=== PATIENT | male | born 1965 | race Caucasian/White ===

== ENCOUNTER 2018-01-26 11:36 | Emergency (ER) | payer OTHER, BC ==
--- NOTE | 2018-01-26 12:00 | EDM.PDOC ---
ED HPI GENERAL MEDICAL PROBLEM - General Chief Complaint: Back Pain or Injury Stated Complaint: [id number] MESSED UP BACK WORKERS COMP Time Seen by Provider: 01/26/18 11:50 Source of Information: Reports: Patient History Limitations: Reports: No Limitations - History of Present Illness INITIAL COMMENTS - FREE TEXT/NARRATIVE: This 52 yo male patient reports to the ED with left lower back pain. The patient reports he was moving a table with parts on it when the pain started. The patient reports he was twisting at the same time. Since the initial injury, the patient has had increased pain with walking (up to 10 steps before his back cramps up). The patient was working with the [employer] at the time of the injury. Onset: Today Onset Date: 01/26/18 Onset Time: 11:00 Duration: Constant Location: Reports: Back (left lower back radiating to the left buttocks) Quality: Reports: Ache, Sharp Severity: Moderate Improves with: Reports: Rest Worsens with: Reports: Movement Associated Symptoms: Reports: No Other Symptoms Bilateral Lower Back Pain Score (Numeric/FACES): 6 - Related Data Allergies Allergy/AdvReac Type Severity Reaction Status Date / Time No Known Allergies Allergy Verified 01/26/18 11:45 Home Meds: Home Meds Pantoprazole [ProTONIX] 40 mg PO DAILY 01/26/18 [History] Past Medical History Respiratory History: Reports: Pneumonia, Recurrent Gastrointestinal History: Reports: GERD, Hiatal Hernia Social & Family History - Tobacco Use Smoking Status *Q: Never Smoker Second Hand Smoke Exposure: No - Recreational Drug Use Recreational Drug Use: No ED ROS GENERAL - Review of Systems Review Of Systems: ROS reveals no pertinent complaints other than HPI. ED EXAM,LOWER BACK PAIN/INJURY - Physical Exam Exam: See Below Exam Limited By: No Limitations General Appearance: Alert, WD/WN, Moderate Distress Eye Exam: Bilateral Eye: EOMI, Normal Inspection, PERRL Ears: Normal External Exam, Normal Canal, Hearing Grossly Normal, Normal TMs Nose: Normal Inspection, Normal Mucosa, No Blood Throat/Mouth: Normal Inspection, Normal Lips, Normal Teeth, Normal Gums, Normal Oropharynx, Normal Voice, No Airway Compromise Head: Atraumatic, Normocephalic Neck: Normal Inspection, Supple, Non-Tender, Full Range of Motion Respiratory/Chest: No Respiratory Distress, Lungs Clear, Normal Breath Sounds, No Accessory Muscle Use, Chest Non-Tender Cardiovascular: Normal Peripheral Pulses, Regular Rate, Rhythm, No Edema, No Gallop, No JVD, No Murmur, No Rub GI/Abdominal: Normal Bowel Sounds, Soft, Non-Tender, No Organomegaly, No Distention, No Abnormal Bruit, No Mass (Male) Exam: Deferred Rectal (Males) Exam: Deferred Back Exam: Decreased Range of Motion (due to muscle spasm and pain), Muscle Spasm, Paraspinal Tenderness (left lower back) Extremities: Normal Inspection, Normal Range of Motion, Non-Tender, No Pedal Edema, Normal Capillary Refill Neurological: Alert, Normal Mood/Affect Psychiatric: Normal Affect, Normal Mood Skin Exam: Warm, Dry, Intact, Normal Color, No Rash Lymphatic: No Adenopathy Course - Vital Signs Last Recorded V/S: Last Vital Signs Temp 37.1 C 01/26/18 11:42 Pulse 73 01/26/18 11:42 Resp 18 01/26/18 11:42 BP 166/87 H 01/26/18 11:42 Pulse Ox 100 01/26/18 11:42 - Orders/Labs/Meds Meds: Medications Discontinued Medications Generic Name Dose Route Start Last Admin Trade Name Freq PRN Reason Stop Dose Admin Ketorolac Tromethamine 30 mg 01/26/18 12:53 01/26/18 12:58 Toradol IM 01/26/18 12:54 30 mg ONETIME ONE Administration Departure - Departure Time of Disposition: 13:03 Disposition: Home, Self-Care 01 Condition: Fair Clinical Impression: Low back strain Qualifiers: Encounter type: initial encounter Qualified Code(s): S39.012A - Strain of muscle, fascia and tendon of lower back, initial encounter Low back pain with left-sided sciatica Qualifiers: Chronicity: acute Back pain laterality: left Qualified Code(s): M54.42 - Lumbago with sciatica, left side - Discharge Information *PRESCRIPTION DRUG MONITORING PROGRAM REVIEWED*: Not Applicable *COPY OF PRESCRIPTION DRUG MONITORING REPORT IN PATIENT LUI: Not Applicable Instructions: Muscle Strain, [id number], Sciatica, [id number], Back Exercises, [id number], Low Back Strain Forms: ED Department Discharge Care Plan Goals: The patient was advised of the examination and x-ray results during the visit. The patient was given an injection of Toradol (antiinflammatory) while in the ED. The patient was discharged with a script for Toradol (10 mg) #20 to take 1 by mouth every 6 hours and Flexeril (10 mg) #16 to take 1 by mouth at bedtime as needed. If the patient has any additional symptoms or concerns, the patient should follow-up with his primary care facility or return to the emergency department.
--- NOTE | 2018-01-26 12:17 | CR ---
Clinical history: 52-year-old male "twisted" injuring lower back, on the left. Interpretation: Subtle scoliotic curvature with convexity to the left and chronic arthritic changes i .e. hypertrophic marginal spondylosis involving all levels lower thoracic and entire lumbar spine. Note: Subtle relative intervertebral disc space narrowing L2-3, L3-4 and L4-5 level suggests chronic disc disease. No sign of pathologic skeletal lesion, lumbar fracture or spondylolisthesis. Symmetric spacing normal-appearing SI joints. CONCLUSION: Subtle changes suggesting multilevel disc disease. Mild arthritic spondylosis. No fractur e or dislocation.
[2018-01-26] MEDS ORDERED: Ketorolac 30 MG/ML SDV IM ONE (12:53)
== END 2018-01-26 13:19 | disposition home or self-care (01) ==
LOC: DL.ED 11:36
DX: S39.012A Strain of muscle, fascia and tendon of lower back, initial encounter (principal); M54.42 Lumbago with sciatica, left side; X50.1XXA Overexertion from prolonged static or awkward postures, initial encounter
CPT/HCPCS: 72100; 96372; 99283; J1885

== ENCOUNTER 2020-04-23 05:23 | Day surgery (SDC) | payer BC ==
[2020-04-23] MEDS ORDERED: Midazolam 1 MG/ML 2 ML SDV IV ONE (05:24)
[2020-04-23] MEDS ORDERED: fentaNYL 100 MCG/2 ML SDV IV ONE (05:24)
[2020-04-23] MEDS ORDERED: Sodium Chloride 0.9% 10 ML Syringe FLUSH PRN (05:30)
[2020-04-23] MEDS: Dextrose 5%-0.45% NaCl 1,000 ML IV SCH (06:00)
[2020-04-23] MEDS ORDERED: fentaNYL 100 MCG/2 ML SDV ONE (06:13)
[2020-04-23] MEDS ORDERED: Midazolam 1 MG/ML 2 ML SDV ONE (06:13)
[2020-04-23] MEDS: fentaNYL 100 MCG/2 ML SDV IV ONE ×2 (06:27→06:28)
[2020-04-23] MEDS: Midazolam 1 MG/ML 2 ML SDV IV ONE ×2 (06:28→06:29)
--- NOTE | 2020-04-23 07:08 | OR ---
DATE: 04/23/2020 PROCEDURES: Esophagogastroduodenoscopy and multiple pinch biopsies. INSTRUMENT USED: [id number] Olympus video panendoscope. PREMEDICATIONS: No oral or topical anesthesia used. Fentanyl 100 mcg intravenous, Versed 2 mg intravenous. The procedure was done under pulse oximetry, BP recording, and engine monitor. INDICATION: The patient with persistent upper abdominal pain and related chest symptoms unexplained and not responsive to medical measures, on long-term PPI. Esophagogastroduodenoscopy is performed for detection of any active erosive lesions, Lynch esophagus and/or malignancy also under consideration, H pylori status to be determined, biopsies to be obtained for esophageal eosinophilia if indicated, esophageal dilatations if indicated, endoscopic hemostasis therapy if needed. DESCRIPTION OF PROCEDURE: The scope was passed with ease. Adequate visualization of the esophagus was made from proximal to distal areas. No upper esophageal lesions identified. No distal esophageal stricture. No uphill or downhill esophageal varices. No Blanca-Valdez tear. No evidence of erosive esophagitis by Charleroi criteria. No esophageal polyp or tumor mass identified. Non-constricting Schatzki's ring was noted. Z-line was seen at around 40 cm distal to the oral verge. No proximal gastric varices noted. Gastric fundus examination by retroflexion showed numerous diminutive benign- appearing polyps. No gastric ulcer, malignant mass, or vascular ectasia identified. Duodenal bulb showed no ulcer. Visualized second part of the duodenum was unremarkable. Multiple pinch biopsies were taken from the gastric antrum and proximal body and sent for PyloriTek test for H. pylori and histopathology. 4 quadrant biopsies were taken from the distal and proximal esophagus and sent for any evidence of esophageal eosinophilia. No bleeding was noted from any of the visualized areas at the completion of examination. Photographs were taken of the duodenal bulb, gastric antrum, fundus, and distal esophagus. IMPRESSION: Diminutive gastric fundus polyps. The patient tolerated the procedure well. [facility] /[id number]
== END 2020-04-23 08:49 | disposition home or self-care (01) ==
LOC: DL.ENDO 05:23
PROVIDERS: ATTEND Internal Medicine Gastroenterology
DX: K31.89 Other diseases of stomach and duodenum (principal); I78.1 Nevus, non-neoplastic; K31.7 Polyp of stomach and duodenum; K21.9 Gastro-esophageal reflux disease without esophagitis; H93.19 Tinnitus, unspecified ear; Z80.0 Family history of malignant neoplasm of digestive organs; Z82.49 Family history of ischemic heart disease and other diseases of the circulatory system
CPT/HCPCS: 43239; 87077; J2250; J3010; J7042

== ENCOUNTER 2021-08-20 18:28 | Emergency (ER) | payer BC ==
[2021-08-20 19:22] LABS: CORONAVIRUS COVID-19 NAA NEGATIVE (NEGATIVE); RESPIRATORY SYNCYTIAL VIR NAA NEGATIVE (NEGATIVE)
[2021-08-20] MEDS ORDERED: Sodium Chloride 0.9% 10 ML Syringe FLUSH PRN (19:59)
[2021-08-20] MEDS ORDERED: Acetaminophen 500 MG Tab PO ONE (19:59)
[2021-08-20] MEDS ORDERED: Ketorolac 30 MG/ML SDV IVPUSH ONE (19:59)
[2021-08-20] MEDS ORDERED: Sodium Chloride 0.9% 1,000 ML IV SCH (20:00)
[2021-08-20] MEDS ORDERED: Ondansetron 4 MG/2 ML SDV IVPUSH ONE (20:27)
[2021-08-20 20:45] LABS: ANION GAP 17.8 mEq/L (7-13); CHLORIDE,CL 99 mmol/L (98-107); SODIUM,NA 136 mmol/L (136-145)
== END 2021-08-21 00:17 | disposition home or self-care (01) ==
LOC: DL.ED 18:28
DX: J02.9 Acute pharyngitis, unspecified (principal); B34.9 Viral infection, unspecified; K21.9 Gastro-esophageal reflux disease without esophagitis; Z88.3 Allergy status to other anti-infective agents; Z79.899 Other long term (current) drug therapy; Z20.822 Contact with and (suspected) exposure to COVID-19
CPT/HCPCS: 0241U; 36415; 71046; 80053; 81001; 83605; 85025; 86140; 87040; 87081; 87430; 96374; 96375; 99283; J1885; J2405; J3490; J7030

== ENCOUNTER 2022-10-06 09:29 | Emergency (ER) | payer BC ==
[2022-10-06] MEDS ORDERED: Ketorolac 30 MG/ML SDV IM ONE (09:40)
== END 2022-10-06 10:38 | disposition home or self-care (01) ==
LOC: DL.ED 09:29
DX: S39.012A Strain of muscle, fascia and tendon of lower back, initial encounter (principal); M62.830 Muscle spasm of back; K21.9 Gastro-esophageal reflux disease without esophagitis; Z79.899 Other long term (current) drug therapy; X50.1XXA Overexertion from prolonged static or awkward postures, initial encounter
CPT/HCPCS: 72100; 96372; 99283; 99284; J1885; J3360